=== PATIENT | female | born 1975 | race Caucasian/White ===

== ENCOUNTER 2019-08-15 | Emergency (ER) | payer OTHER ==
[2019-08-15] MEDS ORDERED: PROCARDIA XL30 MG PO (10:37)
[2019-08-15] MEDS ORDERED: AMOXICILLIN500 M2 PO (12:39)
== END 2019-08-15 12:55 | disposition home or self-care (01) | DRG 153 ==
DX: J06.9 Acute upper respiratory infection, unspecified (principal); I10 Essential (primary) hypertension

== ENCOUNTER 2020-09-06 | Emergency (ER) | payer OTHER ==
[~2020-09-06] MED LIST: AMOXICILLIN500 M2 PO; PROCARDIA XL30 MG PO
[2020-09-06] MEDS ORDERED: ZESTRIL10 M1 PO (18:34)
[2020-09-06 20:01] LABS: HEMATOCRIT 40.1 % (37.0-47.0); HEMOGLOBIN 13.2 g/dl (12.0-16.0); IMMATURE GRANULOCYTES 0.6 % (0.0-5.0); MEAN CELL VOLUME 96.2 fL CALC (80.0-100.0); MEAN CORPUSCULAR HGB 31.7 pG CALC (26.0-32.0); MEAN CORPUSCULAR HGB CONC 32.9 g/dL CAL (32.0-36.0); NEUT# 4.23 thou/uL (2.00-7.15); RED BLOOD COUNT 4.17 mill/uL (4.20-5.60); RED CELL DISTRI WIDTH 13.4 % (11.5-15.5)
[2020-09-06 20:09] LABS: ALBUMIN 4.7 g/dL (3.2-5.0); ALKALINE PHOSPHATASE 60 u/l (38-126); ANION GAP 17 (6-22 (CALC)); BILIRUBIN, TOTAL 0.5 mg/dL (0.0-1.4); BUN 13 mg/dL (7-17); BUN/CREATININE RATIO 17 (12-20 (CALC)); CARBON DIOXIDE 23 mmol/l (22-30); CHLORIDE 103 mmol/l (95-108); CREATININE 0.7 mg/dL (0.5-1.0); GFR > 60 ML/MIN (>=60 (CALC)); GFR FOR AFR.AMER. > 60 ML/MIN (>=60 (CALC)); LIPASE 82 u/l (23-300); POTASSIUM 4.1 mmol/l (3.5-5.1); SGOT/AST 29 u/l (14-36); SODIUM 140 mmol/l (137-146); TOTAL PROTEIN 7.9 g/dL (6.3-8.2)
[2020-09-06 20:24] LABS: GFR 60 ML/MIN (>=60 (CALC)); GFR FOR AFR.AMER. > 60 ML/MIN (>=60 (CALC))
[2020-09-06] MEDS ORDERED: PERCOCET 5/325M1 TAB PO (22:31)
[2020-09-06] MEDS ORDERED: KEFLEX500 M1 PO (22:31)
== END 2020-09-06 23:03 | disposition home or self-care (01) | DRG 605 ==
PROC: 0HQ6XZZ Repair Back Skin, External Approach (ICD-10-PCS; principal; 2020-09-06)
DX: S31.010A Laceration without foreign body of lower back and pelvis without penetration into retroperitoneum, initial encounter (principal); I10 Essential (primary) hypertension; V86.55XA Driver of 3- or 4- wheeled all-terrain vehicle (ATV) injured in nontraffic accident, initial encounter; Y93.I9 Activity, other involving external motion; Y92.009 Unspecified place in unspecified non-institutional (private) residence as the place of occurrence of the external cause
CPT/HCPCS: Q9967

== ENCOUNTER 2020-09-15 12:29 | Emergency (ER) | payer OTHER ==
[~2020-09-15 12:29] MED LIST changes: +KEFLEX500 M1 PO; +PERCOCET 5/325M1 TAB PO; +ZESTRIL10 M1 PO
[2020-09-15] MEDS ORDERED: LISINOPRIL10 MG PO (13:11)
[2020-09-15 13:20] VITALS: BP 132/78
== END 2020-09-15 13:20 | disposition home or self-care (01) | DRG 950 ==
LOC: ED 12:29
DX: S21.212D Laceration without foreign body of left back wall of thorax without penetration into thoracic cavity, subsequent encounter (principal); X58.XXXD Exposure to other specified factors, subsequent encounter

== ENCOUNTER 2021-04-04 18:45 | Emergency (ER) | payer OTHER ==
[~2021-04-04] VITALS: Ht 160 cm; Wt 85.0 kg
[~2021-04-04 18:45] MED LIST changes: +LISINOPRIL10 MG PO
[2021-04-04 19:32] LABS: HEMATOCRIT 36.8 % (37.0-47.0); HEMOGLOBIN 12.6 g/dl (12.0-16.0); IMMATURE GRANULOCYTES 0.2 % (0.0-5.0); MEAN CELL VOLUME 94.6 fL CALC (80.0-100.0); MEAN CORPUSCULAR HGB 32.4 pG CALC (26.0-32.0); MEAN CORPUSCULAR HGB CONC 34.2 g/dL CAL (32.0-36.0); RED BLOOD COUNT 3.89 mill/uL (4.20-5.60)
[2021-04-04 19:33] LABS: URINE BILIRUBIN - DIPSTICK NEGATIVE (NEGATIVE); URINE BLOOD DIPSTICK NEGATIVE (NEGATIVE); URINE COLOR YELLOW; URINE GLUCOSE - DIPSTICK NEGATIVE (NEGATIVE); URINE KETONE NEGATIVE (NEGATIVE); URINE LEUK ESTERASE NEGATIVE (NEGATIVE); URINE NITRITE - DIPSTICK NEGATIVE (Negative); URINE PH 6.5 (4.5-8.0); URINE PROTEIN - DIPSTICK NEGATIVE (NEG-TRACE); URINE UROBILINOGEN - DIPSTICK 0.2 E.U./dL (0.2)
[2021-04-04 19:46] LABS: ALBUMIN 4.1 g/dL (3.2-5.0); ALKALINE PHOSPHATASE 49 u/l (38-126); AMYLASE 39 u/l (30-110); ANION GAP 12 (6-22 (CALC)); BILIRUBIN, TOTAL 0.3 mg/dL (0.0-1.4); BUN 8 mg/dL (7-17); BUN/CREATININE RATIO 16 (12-20 (CALC)); CARBON DIOXIDE 23 mmol/l (22-30); CHLORIDE 103 mmol/l (95-108); CREATININE 0.5 mg/dL (0.5-1.0); GFR > 60 ML/MIN (>=60 (CALC)); GFR FOR AFR.AMER. > 60 ML/MIN (>=60 (CALC)); LIPASE 102 u/l (23-300); POTASSIUM 3.7 mmol/l (3.5-5.1); SGOT/AST 19 u/l (14-36); SODIUM 135 mmol/l (137-146); TOTAL PROTEIN 7.1 g/dL (6.3-8.2)
[2021-04-04 20:07] LABS: BETA-HCG, QUANT(RESULT NUMBER) > 15000 mIU/mL
[2021-04-04] MEDS ORDERED: ONDANSETRON4 MG PO (20:21)
[2021-04-04 20:30] VITALS: BP 143/95
[2021-04-06] MEDS ORDERED: NIFEDIPINE ER30 M1 PO (07:52)
== END 2021-04-04 20:40 | disposition home or self-care (01) | DRG 833 ==
LOC: ED 18:45
PROVIDERS: Emergency Medicine
DX: O10.919 Unspecified pre-existing hypertension complicating pregnancy, unspecified trimester (principal); Z3A.00 Weeks of gestation of pregnancy not specified; Z67.40 Type O blood, Rh positive

== ENCOUNTER 2022-03-18 10:13 | Emergency (ER) | payer OTHER ==
[~2022-03-18] VITALS: Ht 160 cm; Wt 86.3 kg
[~2022-03-18 10:13] MED LIST changes: +NIFEDIPINE ER30 M1 PO; +ONDANSETRON4 MG PO
[2022-03-18] MEDS ORDERED: TOBREX OPTH5 ML/BTL OD (10:38)
[2022-03-18 10:39] VITALS: BP 148/73
== END 2022-03-18 10:54 | disposition home or self-care (01) | DRG 125 ==
LOC: ED 10:13
DX: S05.01XA Injury of conjunctiva and corneal abrasion without foreign body, right eye, initial encounter (principal); W20.8XXA Other cause of strike by thrown, projected or falling object, initial encounter; X37.0XXA Hurricane, initial encounter